=== PATIENT | female | born 1955 | race African-American/Black ===

== ENCOUNTER 2020-01-02 10:47 | Emergency (ER) | payer MEDICAID ==
[~2020-01-02] VITALS: Ht 167.6 cm; Wt 43.0 kg
[2020-01-02] MEDS ORDERED: ACETAMINOPHEN 325MG TABLET PO ONE (14:00)
[2020-01-02 18:22] VITALS: BP 124/74
== END 2020-01-02 18:22 | disposition home or self-care (01) ==
LOC: ER 10:47
DX: M84.40XA Pathological fracture, unspecified site, initial encounter for fracture (principal); I10 Essential (primary) hypertension; Z98.890 Other specified postprocedural states; W18.30XA Fall on same level, unspecified, initial encounter; Y93.89 Activity, other specified; Y92.89 Other specified places as the place of occurrence of the external cause; Y99.8 Other external cause status
CPT/HCPCS: 71250; 99285

== ENCOUNTER 2024-06-21 16:31 | Emergency (ER) | payer MEDICAID ==
[~2024-06-21] VITALS: Ht 152.4 cm; Wt 62.0 kg
[2024-06-21 16:34] VITALS: O2SAT 97
[2024-06-21 16:42] VITALS: BP 113/58; PULSE 76; RESP 15; TEMP 36.89184; O2SAT 97
[2024-06-21] MEDS ORDERED: FOLIC ACID 1 MG, THIAMINE HCL 100 MG, MVI, ADULT NO.1 10 ML in DEXTROSE 5% WATER 1,000 ML IV ONE (16:45)
[2024-06-21] MEDS: ONDANSETRON 4MG ODT PO ONE (17:06)
[2024-06-21] MEDS: MAGNESIUM/ALUMINUM HYDROXIDE/SIMETHICONE 30ML UDC PO ONE (17:06)
[2024-06-21] MEDS: FOLIC ACID 1 MG, THIAMINE HCL 100 MG, MVI, ADULT NO.1 10 ML in SODIUM CHLORIDE 0.9% 1,0... IV ONE (17:06)
[2024-06-21 17:13] LABS: CARBON DIOXIDE 20 mEq/L (21-32); CHLORIDE 110 mEq/L (98-107); POTASSIUM 4.2 mEq/L (3.5-5.1); SODIUM 139 mEq/L (136-145)
[2024-06-21 17:14] LABS: CALCIUM 8.5 mg/dL (8.7-10.4); INR 0.9; PROTHROMBIN TIME 10.5 sec (9.6-11.0)
[2024-06-21 17:18] LABS: CREATININE 0.8 mg/dL (0.6-1.0)
[2024-06-21 17:19] LABS: ETHANOL BLOOD 291 mg/dL (<10); GLUCOSE 86 mg/dL (70-105); UREA NITROGEN BLOOD 7 mg/dL (9-23)
[2024-06-21 17:20] LABS: ALANINE AMINOTRANSFERASE 26 IU/L (10-49)
[2024-06-21 17:21] LABS: ALBUMIN 4.1 g/dL (3.2-4.8); ASPARTATE AMINOTRANSFERASE 31 IU/L (<34); BILIRUBIN DIRECT 0.1 mg/dL (<=3.0); BILIRUBIN TOTAL 0.2 mg/dL (0.1-1.0); PROTEIN TOTAL 6.7 g/dL (6.0-8.3)
[2024-06-21 17:48] LABS: TROPONIN I HIGH SENSITIVITY < 4 ng/L (3.0-34)
[2024-06-21 18:00] LABS: BASOPHILS % 0.5 % (0.0-2.0); EOSINOPHILS % 0.7 % (0.0-5.0); HEMATOCRIT. 42.1 % (36.0-48.0); HEMOGLOBIN. 13.8 g/dL (12.0-16.0); LYMPHOCYTES % 69.3 % (20.0-50.0); MEAN CORPUSCULAR HEMOGLOBIN 32.6 pg (28.0-32.0); MEAN CORPUSCULAR HGB CONC 32.7 g/dL (31.0-37.0); MEAN CORPUSCULAR VOLUME 99.7 fL (81.0-99.0); MEAN PLATELET VOLUME 6.7 fl (7.4-10.4); MONOCYTES % 8.5 % (2.0-8.0); PLATELET 270 x1000/uL (130-400); RED BLOOD CELL COUNT 4.23 mill/uL (4.2-5.4); RED CELL DISTRIBUTION WIDTH 14.8 % (11.6-14.6)
== END 2024-06-21 19:07 | disposition left against medical advice (07) ==
LOC: ER 16:31
DX: F10.129 Alcohol abuse with intoxication, unspecified (principal); I10 Essential (primary) hypertension; F41.9 Anxiety disorder, unspecified; Y90.8 Blood alcohol level of 240 mg/100 ml or more
CPT/HCPCS: 80076; 80048; 80320; 83690; 85025; 85610; 84484; 36415; 93005; 96365; 96366; 99284; Q0162; J3490 ×2; J3411; J7030; J7070; G0480

== ENCOUNTER 2025-06-02 14:48 | Emergency (ER) | payer MEDICAID ==
[~2025-06-02] VITALS: Ht 160 cm; Wt 60.0 kg
[2025-06-02 14:56] VITALS: TEMP 36.7; O2SAT 95
[2025-06-02] MEDS ORDERED: ACET-2708 MT (17:02)
[2025-06-02 17:30] VITALS: TEMP 98.1
[2025-06-02] MEDS: ACETAMINOPHEN 500MG TABLET PO ONE (17:30)
[2025-06-02] MEDS: ACETAMINOPHEN 500MG TABLET PO NR (17:30)
[2025-06-02 17:31] VITALS: BP 155/89; PULSE 91; RESP 16; O2SAT 95
== END 2025-06-02 17:32 | disposition home or self-care (01) ==
LOC: ER 14:48
DX: S02.2XXA Fracture of nasal bones, initial encounter for closed fracture (principal); I10 Essential (primary) hypertension; W01.198A Fall on same level from slipping, tripping and stumbling with subsequent striking against other object, initial encounter; Y93.01 Activity, walking, marching and hiking; Y92.89 Other specified places as the place of occurrence of the external cause; Y99.8 Other external cause status
CPT/HCPCS: 70486; 99284